=== PATIENT | male | born 1955 ===

== ENCOUNTER → 2016-05-22 | Outpatient (CLI) | payer MEDICAID ==
[~2016-05-22] MED LIST: ASPIRIN (CHILDR81 MG PO; DIOVAN40 MG PO; LIPITOR20 M1 PO; MAG-OX-400(241400 MG PO; PROVENTIL OR V6.7 GM INH; SYMBICORT 16010.2 GM INH; TOPROL XL25 MG PO; TOUJEO SOL300 UNIT/1 SUB-Q; VITAMIN D-32000 UNI1 PO; XARELTO15 MG PO; XARELTO20 MG PO
--- NOTE | ~2016-05-22 | ECHO ---
Transthoracic Echocardiography Report (TTE) Demographics Patient Name CANDI SANTIZO Date of Study 05/22/2016 Patient Number [id number] Visit Number [id number] Date of 1955 Room Number Accession Number [id number] Gender Male Age 60 year(s) Referring Regulo Zuñiga MD [employer] Mica Mikey King Physician Physician Interpreting Svitlana Murphy Psychological Science Professor Physician Supervising Ordering Physician Regulo Zuñiga MD, MD/P Nurse Stress Head Piece Assembler Conclusions Summary Normal LV wall thickness and internal dimensions.LVEF is in the lower limits of normal or mildly reduced.EF 45-50%.RWMAs are difficult to comment on. Mild MAC. TDS. Procedure Type of Study TTE procedure:2D Echocardiogram, M-Mode, Doppler , Color Doppler. Procedure Date Date: 05/22/2016 Start: 01:52 PM Study Location: Echo Lab Technical Quality: Adequate visualization Indications:Shortness of breath. Appropriate Use Criteria: 9 Patient Status: Routine HR: 79 bpm BP: 133/63 mmHg M-Mode/2D Measurements LV Diastolic Dimension: 4.79 cm LV Systolic Dimension: 4.5 cm LV Septum Diastolic: 0.94 cm LV PW Diastolic: 0.89 cm AO Root Dimension: 2.6 cm Cardiac Output: 6.48 l/min LA Dimension: 4.1 cm EF Estimated: 45 % LVOT: 2.1 cm LVOT VTI: 23.7 cm RV Base: 2.53 cm LV Stroke volume: 82.05 ml RV Length: 8.62 cm TAPSE: 1.55 cm TDI-S': 9.87 cm/s Doppler Measurements AV Peak Velocity: 1.41 m/s MV Peak E-Wave: 0.68 m/s AV Peak Gradient: 7.95 mmHg MV Peak A-Wave: 0.97 m/s AV Mean Gradient: 5 mmHg MV E/A Ratio: 0.7 LVOT Peak Velocity: 1.24 m/s MV P1/2t: 61 msec TR Gradient:3.1 mmHg PV Peak Velocity: 0.83 m/s Estimated RAP:3 mmHg PV Peak Gradient: 2.74 mmHg Estimated RVSP: 6 mmHg Estimated PASP: 6.1 mmHg E' Septal Velocity: 0.06 m/s A' Septal Velocity: 0.1 m/s E' Lateral Velocity: 0.06 m/s A' Lateral Velocity: 0.11 m/s Findings Left Ventricle The left ventricle is normal in size and wall thickness.LVEF is probably low normal.RWMAs are difficult to comment on. Right Ventricle Normal right ventricle structure and function. Left Atrium Normal left atrial size. Right Atrium Normal right atrial size. IVC measures 1.49 cm with inspiratory collapse. Mitral Valve Mild mitral annular calcification. Aortic Valve Normal aortic valve structure and function. Tricuspid Valve Normal tricuspid valve structure and function. Pulmonic Valve Normal pulmonic valve structure and function. Pericardial Effusion No evidence of pericardial effusion. Miscellaneous Visualized portions of the aortic root and ascending aorta appear normal in size. Pleural Effusion No evidence of pleural effusion. Contractility Score LV regional wall motion:(0-Non visualized 1-Normal 2-Hypokinesis 3-Akinesis 4-Dyskinesis 5-Aneurysm) Signature dtt: Katherine Shane dtd: 05/22/16 1352 Physician Self Edit
== END | disposition disaster alternative care site (69) ==
LOC: GCAR 13:43
DX: I25.119 Atherosclerotic heart disease of native coronary artery with unspecified angina pectoris (principal); I50.42 Chronic combined systolic (congestive) and diastolic (congestive) heart failure; I05.9 Rheumatic mitral valve disease, unspecified; R06.02 Shortness of breath

== ENCOUNTER → 2016-09-08 | Outpatient (CLI) | payer MEDICAID ==
[2016-09-08 10:40] LABS: ALBUMIN 3.4 gm/dL (3.5-5.0); ALK PHOS 96 IU/L (33-138); ALT 36 IU/L (12-78); AST 18 IU/L (10-40); CPK 40 IU/L (35-332); TOTAL BILIRUBIN 0.3 mg/dL (0.0-1.5); TOTAL PROTEIN 7.3 g/dL (6.0-8.4)
== END | disposition disaster alternative care site (69) ==
LOC: LGSOS 10:17
PROVIDERS: Internal Medicine Interventional Cardiology
DX: E78.2 Mixed hyperlipidemia (principal)